=== PATIENT | female | born 1965 | race Caucasian/White ===

== ENCOUNTER → 2017-09-04 | Outpatient (CLI) | payer OTHER | END | disposition home or self-care (01) | LOC: HKI 13:42 | DX: M17.0 Bilateral primary osteoarthritis of knee (principal); E66.9 Obesity, unspecified; E11.8 Type 2 diabetes mellitus with unspecified complications; Z79.4 Long term (current) use of insulin | CPT/HCPCS: 73564; 73564-50 ==

== ENCOUNTER → 2017-09-18 | Outpatient (CLI) | payer OTHER | END | disposition home or self-care (01) | LOC: HKI 09:23 | DX: M17.0 Bilateral primary osteoarthritis of knee (principal); E11.8 Type 2 diabetes mellitus with unspecified complications; Z79.4 Long term (current) use of insulin; Z79.84 Long term (current) use of oral hypoglycemic drugs; Z79.82 Long term (current) use of aspirin | CPT/HCPCS: 20610; 20610-50 ==